=== PATIENT | male | born 1945 | race Caucasian/White ===

== ENCOUNTER → 2017-10-17 | Emergency (ER) | payer OTHER ==
[~2017-10-17] VITALS: Ht 175.3 cm; Wt 70.3 kg
[~2017-10-17] MED LIST: HUMALOG100 U/M1 SQ; LEVEMIR100 U/ML SQ; ZOCOR5 MG
== END | disposition home or self-care (01) ==
LOC: ER 08:41
DX: L02.212 Cutaneous abscess of back [any part, except buttock and flank] (principal); L72.0 Epidermal cyst; K94.23 Gastrostomy malfunction; K94.29 Other complications of gastrostomy; B96.4 Proteus (mirabilis) (morganii) as the cause of diseases classified elsewhere; B95.2 Enterococcus as the cause of diseases classified elsewhere; B96.6 Bacteroides fragilis [B. fragilis] as the cause of diseases classified elsewhere; B96.89 Other specified bacterial agents as the cause of diseases classified elsewhere

== ENCOUNTER 2018-11-27 08:06 | Emergency (ER) | payer OTHER ==
[~2018-11-27] VITALS: Ht 175.3 cm; Wt 68.0 kg
== END 2018-11-27 11:01 | disposition home or self-care (01) ==
LOC: ER 08:06
DX: K94.23 Gastrostomy malfunction (principal)

== ENCOUNTER 2019-03-15 06:17 | Emergency (ER) | payer OTHER ==
[~2019-03-15] VITALS: Ht 175.3 cm; Wt 79.8 kg
[2019-03-15] MEDS ORDERED: LOSARTAN-HCTZ1 EAC1 (06:23)
[2019-03-15] MEDS ORDERED: AMLODIPINE BESYL5 MG (06:24)
[2019-03-15] MEDS ORDERED: SIMVASTATIN20 MG (06:24)
== END 2019-03-15 15:49 | disposition home or self-care (01) ==
LOC: ER 06:17
DX: K94.23 Gastrostomy malfunction (principal); R33.8 Other retention of urine; E11.65 Type 2 diabetes mellitus with hyperglycemia; Z74.01 Bed confinement status

== ENCOUNTER 2019-04-14 20:00 | Emergency (ER) | payer OTHER ==
[~2019-04-14] VITALS: Ht 172.7 cm; Wt 65.8 kg
[~2019-04-14 20:00] MED LIST changes: +AMLODIPINE BESYL5 MG; +LOSARTAN-HCTZ1 EAC1; +SIMVASTATIN20 MG
[2019-04-14] MEDS ORDERED: HUMULIN 70100 UNIT/2 (20:01)
[2019-04-14] MEDS ORDERED: LEVOTHYROXINE25 MCG (20:02)
== END 2019-04-14 23:40 | disposition home or self-care (01) ==
LOC: ER 20:00
DX: N39.0 Urinary tract infection, site not specified (principal); R33.8 Other retention of urine; B96.89 Other specified bacterial agents as the cause of diseases classified elsewhere

== ENCOUNTER 2019-05-14 09:06 | Emergency (ER) | payer OTHER ==
[~2019-05-14] VITALS: Ht 175.3 cm; Wt 72.6 kg
[~2019-05-14 09:06] MED LIST changes: +HUMULIN 70100 UNIT/2; +LEVOTHYROXINE25 MCG
== END 2019-05-14 09:27 | disposition home or self-care (01) ==
LOC: ER 09:06
DX: K94.23 Gastrostomy malfunction (principal); R13.19 Other dysphagia

== ENCOUNTER 2019-07-20 07:47 | Outpatient (CLI) | payer OTHER | END 2019-07-20 08:01 | disposition home or self-care (01) | LOC: LAB 07:47 | DX: L89.00 Pressure ulcer of unspecified elbow (principal) ==

== ENCOUNTER 2019-08-06 08:41 | Emergency (ER) | payer OTHER ==
[~2019-08-06] VITALS: Ht 172.7 cm; Wt 63.5 kg
== END 2019-08-06 14:33 | disposition home or self-care (01) ==
LOC: ER 08:41
DX: K94.23 Gastrostomy malfunction (principal); L89.623 Pressure ulcer of left heel, stage 3; L08.89 Other specified local infections of the skin and subcutaneous tissue; B96.1 Klebsiella pneumoniae [K. pneumoniae] as the cause of diseases classified elsewhere; B95.2 Enterococcus as the cause of diseases classified elsewhere; B96.4 Proteus (mirabilis) (morganii) as the cause of diseases classified elsewhere; B96.89 Other specified bacterial agents as the cause of diseases classified elsewhere; Z74.01 Bed confinement status

== ENCOUNTER 2019-11-05 01:32 | Emergency (ER) | payer OTHER ==
[~2019-11-05] VITALS: Ht 175.3 cm; Wt 74.8 kg
== END 2019-11-05 10:12 | disposition home or self-care (01) ==
LOC: ER 01:32
DX: R33.8 Other retention of urine (principal)

== ENCOUNTER 2019-11-21 03:46 | Emergency (ER) | payer OTHER ==
[~2019-11-21] VITALS: Ht 175.3 cm; Wt 72.6 kg
[2019-11-21] MEDS ORDERED: INTESTINEX680 M1 PO (10:27)
[2019-11-21] MEDS ORDERED: BACTRIM DS TAB1 EACH PO (10:27)
== END 2019-11-21 13:13 | disposition home or self-care (01) ==
LOC: ER 03:46
DX: N39.0 Urinary tract infection, site not specified (principal); R33.8 Other retention of urine; B96.5 Pseudomonas (aeruginosa) (mallei) (pseudomallei) as the cause of diseases classified elsewhere; R31.29 Other microscopic hematuria

== ENCOUNTER 2019-11-27 00:41 | Emergency (ER) | payer OTHER ==
[~2019-11-27] VITALS: Ht 175.3 cm; Wt 72.6 kg
[~2019-11-27 00:41] MED LIST changes: +BACTRIM DS TAB1 EACH PO; +INTESTINEX680 M1 PO
== END 2019-11-27 02:30 | disposition home or self-care (01) ==
LOC: ER 00:41
DX: R33.8 Other retention of urine (principal)

== ENCOUNTER 2020-01-15 04:49 | Emergency (ER) | payer OTHER ==
[~2020-01-15] VITALS: Ht 175.3 cm; Wt 72.6 kg
== END 2020-01-15 05:02 | disposition home or self-care (01) ==
LOC: ER 04:49
DX: K94.23 Gastrostomy malfunction (principal); Z74.01 Bed confinement status

== ENCOUNTER 2020-01-17 19:39 | Emergency (ER) | payer OTHER ==
[~2020-01-17] VITALS: Ht 180.3 cm; Wt 72.6 kg
== END 2020-01-17 20:00 | disposition home or self-care (01) ==
LOC: ER 19:39
DX: K94.23 Gastrostomy malfunction (principal)

== ENCOUNTER 2020-06-08 18:49 | Emergency (ER) | payer OTHER ==
[~2020-06-08] VITALS: Ht 175.3 cm; Wt 77.1 kg
== END 2020-06-09 01:26 | disposition home or self-care (01) ==
LOC: ER 18:49
DX: K94.29 Other complications of gastrostomy (principal); K94.22 Gastrostomy infection; L03.311 Cellulitis of abdominal wall; K59.09 Other constipation; B96.29 Other Escherichia coli [E. coli] as the cause of diseases classified elsewhere; B96.1 Klebsiella pneumoniae [K. pneumoniae] as the cause of diseases classified elsewhere; B95.2 Enterococcus as the cause of diseases classified elsewhere; B96.89 Other specified bacterial agents as the cause of diseases classified elsewhere

== ENCOUNTER 2020-06-11 13:44 | Emergency (ER) | payer OTHER ==
[~2020-06-11] VITALS: Ht 175.3 cm; Wt 72.6 kg
== END 2020-06-11 17:10 | disposition home or self-care (01) ==
LOC: ER 13:44
DX: K94.29 Other complications of gastrostomy (principal)

== ENCOUNTER 2020-08-20 04:46 | Emergency (ER) | payer OTHER ==
[~2020-08-20] VITALS: Ht 175.3 cm; Wt 72.6 kg
== END 2020-08-20 11:38 | disposition home or self-care (01) ==
LOC: ER 04:46
DX: R13.19 Other dysphagia (principal); R05 Cough

== ENCOUNTER 2021-08-03 11:30 | Emergency (ER) | payer OTHER ==
[~2021-08-03] VITALS: Ht 167.6 cm; Wt 68.0 kg
== END 2021-08-03 13:09 | disposition home or self-care (01) ==
LOC: ER 11:30
DX: K94.29 Other complications of gastrostomy (principal)

== ENCOUNTER 2021-08-06 08:58 | Emergency (ER) | payer OTHER ==
[~2021-08-06] VITALS: Ht 175.3 cm; Wt 76.2 kg
[2021-08-06] MEDS ORDERED: ATORVASTATIN CA20 MG PO (09:24)
[2021-08-06] MEDS ORDERED: TAMS0.4C PO (09:25)
== END 2021-08-06 15:58 | disposition home or self-care (01) ==
LOC: ER 08:58
DX: K94.23 Gastrostomy malfunction (principal)

== ENCOUNTER → 2021-08-15 | Emergency (ER) | payer OTHER ==
[~2021-08-15] VITALS: Ht 170.2 cm; Wt 76.2 kg
[~2021-08-15] MED LIST changes: +ATORVASTATIN CA20 MG PO; +TAMS0.4C PO
== END | disposition home or self-care (01) ==
LOC: ER 06:14
DX: K94.23 Gastrostomy malfunction (principal)

== ENCOUNTER 2022-06-18 18:49 | Emergency (ER) | payer OTHER ==
[~2022-06-18] VITALS: Ht 172.7 cm; Wt 74.8 kg
[2022-06-18] MEDS ORDERED: NORVASC2.5 M1 (19:05)
[2022-06-18] MEDS ORDERED: COZAAR25 MG (19:05)
== END 2022-06-18 21:37 | disposition home or self-care (01) ==
LOC: ER 18:49
DX: K94.20 Gastrostomy complication, unspecified (principal)

== ENCOUNTER 2022-09-01 14:47 | Inpatient (IN) | payer OTHER ==
[~2022-09-01] VITALS: Ht 175.3 cm; Wt 72.6 kg
[~2022-09-01 14:47] MED LIST changes: +COZAAR25 MG; +NORVASC2.5 M1
[2022-09-07] MEDS ORDERED: CEFACLOR500 MG PO (10:49)
== END 2022-09-07 13:28 | disposition home or self-care (01) | DRG 603 ==
LOC: ER 14:47 → MEDI 20:35
PROVIDERS: ADMIT Internal Medicine; ATTEND Internal Medicine
PROC: B54BZZZ Ultrasonography of Right Lower Extremity Veins (ICD-10-PCS; principal; 2022-09-01)
DX: L03.115 Cellulitis of right lower limb (principal); N39.0 Urinary tract infection, site not specified; B96.5 Pseudomonas (aeruginosa) (mallei) (pseudomallei) as the cause of diseases classified elsewhere; B96.89 Other specified bacterial agents as the cause of diseases classified elsewhere; R60.0 Localized edema; K94.20 Gastrostomy complication, unspecified; Z74.01 Bed confinement status; E03.9 Hypothyroidism, unspecified; Z20.822 Contact with and (suspected) exposure to COVID-19; Z86.73 Personal history of transient ischemic attack (TIA), and cerebral infarction without residual deficits; I11.9 Hypertensive heart disease without heart failure; J44.9 Chronic obstructive pulmonary disease, unspecified; I73.89 Other specified peripheral vascular diseases

== ENCOUNTER 2022-09-14 17:12 | Inpatient (IN) | payer OTHER ==
[~2022-09-14] VITALS: Ht 170.2 cm; Wt 70.3 kg
[~2022-09-14 17:12] MED LIST changes: +CEFACLOR500 MG PO
== END 2022-09-26 19:13 | disposition home or self-care (01) | DRG 981 ==
LOC: ER 17:12 → MEDJ 22:25
PROVIDERS: ADMIT Internal Medicine; ATTEND Internal Medicine
PROC: 0JDR0ZZ Extraction of Left Foot Subcutaneous Tissue and Fascia, Open Approach (ICD-10-PCS; 2022-09-16)
PROC: B24BZZZ Ultrasonography of Heart with Aorta (ICD-10-PCS; 2022-09-16)
PROC: BW24ZZZ Computerized Tomography (CT Scan) of Chest and Abdomen (ICD-10-PCS; 2022-09-17)
PROC: 0JDR0ZZ Extraction of Left Foot Subcutaneous Tissue and Fascia, Open Approach (ICD-10-PCS; principal; 2022-09-23)
PROC: 30233N1 Transfusion of Nonautologous Red Blood Cells into Peripheral Vein, Percutaneous Approach (ICD-10-PCS; 2022-09-23)
DX: E11.621 Type 2 diabetes mellitus with foot ulcer (principal); I50.31 Acute diastolic (congestive) heart failure; L03.116 Cellulitis of left lower limb; E87.1 Hypo-osmolality and hyponatremia; J44.1 Chronic obstructive pulmonary disease with (acute) exacerbation; N17.8 Other acute kidney failure; L97.529 Non-pressure chronic ulcer of other part of left foot with unspecified severity; E11.628 Type 2 diabetes mellitus with other skin complications; E86.0 Dehydration; D64.9 Anemia, unspecified; B96.89 Other specified bacterial agents as the cause of diseases classified elsewhere; R13.19 Other dysphagia; E87.5 Hyperkalemia; E03.9 Hypothyroidism, unspecified; Z74.01 Bed confinement status; I25.10 Atherosclerotic heart disease of native coronary artery without angina pectoris; E78.5 Hyperlipidemia, unspecified; Z79.4 Long term (current) use of insulin; Z93.1 Gastrostomy status; I11.0 Hypertensive heart disease with heart failure; N40.0 Benign prostatic hyperplasia without lower urinary tract symptoms; Z20.822 Contact with and (suspected) exposure to COVID-19; F17.200 Nicotine dependence, unspecified, uncomplicated; E11.65 Type 2 diabetes mellitus with hyperglycemia

== ENCOUNTER 2022-09-30 11:57 | Emergency (ER) | payer OTHER ==
[~2022-09-30] VITALS: Ht 175.3 cm; Wt 72.6 kg
== END 2022-09-30 15:41 | disposition home or self-care (01) ==
LOC: ER 11:57
DX: K94.23 Gastrostomy malfunction (principal)